=== PATIENT | female | born 1990 | race Hispanic/Latino ===

== ENCOUNTER 2019-10-26 17:50 | Inpatient (IN) | payer OTHER ==
[~2019-10-26] VITALS: Ht 162.6 cm; Wt 105.0 kg
[2019-10-26] MEDS ORDERED: ACETAMINOPHEN 325 MG TAB PO ONE (18:30)
[2019-10-26] MEDS ORDERED: AZITHROMYCIN 500MG/NS 250 ML 250 ML IV ONE (18:30)
[2019-10-26] MEDS ORDERED: CEFTRIAXONE SOD 1 GM/NS 50 ML 50 ML IV ONE (18:30)
[2019-10-26] MEDS ORDERED: ACETAMINOPHEN 325 MG TAB ONE (18:38)
--- NOTE | 2019-10-26 18:51 | Emergency Department Note ---
History of Present Illnes History of Present Illness Chief Complaint: COVID PUI History of Present Illness This is a 29 year old female who states she tested positive for cocaine 1 week ago at a freestanding ER presents with complaint of increasing shortness of breath that is getting worse with exertion point now that she becomes very short of breath when she tries to walk to her bathroom. Patient reports dry cough that is nonproductive. Patient also reports has a history of asthma and has been using her inhalers without any effect to her breathing however she does deny wheezing . Historian: Patient Arrival Mode: Car Onset (how long ago): day(s) (7) Location: chest Quality: sob Radiation: Reports non-radiation Severity: moderate Onset quality: gradual Duration (how long): day(s) (7) Timing of current episode: constant Progression: worsening Chronicity: new Context: Reports recent illness (positive for covid 19 one week ago); Denies recent surgery, Denies trauma/injury Relieving factors: none Exacerbating factors: movement Associated symptoms: Reports cough, Reports fever/chills, Reports shortness of breath, Reports weakness Treatments prior to arrival: none Past Medical/Family History Physician Review I have reviewed the patient's past medical and family history. Any updates have been documented here. Past Medical History Recent Fever: Yes (REPORTS 102) Clinical Suspicion of Infectio: Yes New/Unexplained Change in Ment: No Past Medical History: Asthma Past Surgical History: None Social History Smoking Cessation: Never Smoker Alcohol Use: None Any Illegal Drug Use: No Family History Other family history htn,dm Review of Systems Review of Systems Constitutional: Reports as per HPI EENTM: Reports no symptoms Cardiovascular: Reports no symptoms Respiratory: Reports as per HPI Gastrointestinal: Reports no symptoms Genitourinary: Reports no symptoms Musculoskeletal: Reports no symptoms Integumentary: Reports no symptoms Neurological: Reports no symptoms Psychological: Reports no symptoms Endocrine: Reports no symptoms Hematological/Lymphatic: Reports no symptoms Physical Exam Related Data Allergies: Coded Allergies: No Known Allergies (Unverified , 10/26/19) Triage Vital Signs Vital Signs Date Time Temp Pulse Resp B/P (MAP) Pulse Ox O2 Delivery O2 Flow Rate FiO2 10/26/19 18:11 97.2 135 26 132/90 98 Room Air Vital signs reviewed: Yes Physical Exam CONSTITUTIONAL Constitutional: Present well-developed, Present well-nourished, Present distressed (mild), Present ill appearing HENT HENT: Present normocephalic, Present atraumatic, Present oropharynx clear/moist, Present nose normal HENT L/R: Present left ext ear normal, Present right ext ear normal EYES Eyes: Reports PERRL, Reports conjunctivae normal NECK Neck: Present ROM normal PULMONARY Pulmonary: Present effort normal, Present respiratory distress (pt with tacypnea rr 32), Present rhonchi (throughout); Absent chest tenderness CARDIOVASCULAR Cardiovascular: Present regular rhythm, Present heart sounds normal, Present capillary refill normal, Present tachycardia (134) GASTROINTESTINAL Abdominal: Present soft, Present nontender, Present bowel sounds normal GENITOURINARY Genitourinary: Present exam deferred SKIN Skin: Present warm, Present dry MUSCULOSKELETAL Musculoskeletal: Present ROM normal NEUROLOGICAL Neurological: Present alert, Present oriented x 3, Present no gross motor or sensory deficits PSYCHOLOGICAL Psychological: Present mood/affect normal, Present judgement normal Results Laboratory Laboratory Laboratory Tests Test 10/26/19 19:00 White Blood Count 9.92 x10e3/uL (4.8-10.8) Red Blood Count 5.01 x10e6/uL (3.6-5.1) Hemoglobin 14.2 g/dL (12.0-16.0) Hematocrit 44.4 % (34.2-44.1) Mean Corpuscular Volume 88.6 fL (81-99) Mean Corpuscular Hemoglobin 28.3 pg (28-32) Mean Corpuscular Hemoglobin Concent 32.0 g/dL (31-35) Red Cell Distribution Width 13.2 % (11.7-14.4) Platelet Count 358 x10e3/uL (140-360) Neutrophils (%) (Auto) 82.4 % (38.7-80.0) Lymphocytes (%) (Auto) 12.5 % (18.0-39.1) Monocytes (%) (Auto) 4.2 % (4.4-11.3) Eosinophils (%) (Auto) 0.0 % (0.0-6.0) Basophils (%) (Auto) 0.2 % (0.0-1.0) Neutrophils # (Auto) 8.2 (2.1-6.9) Lymphocytes # (Auto) 1.2 (1.0-3.2) Monocytes # (Auto) 0.4 (0.2-0.8) Eosinophils # (Auto) 0.0 (0.0-0.4) Basophils # (Auto) 0.0 (0.0-0.1) Absolute Immature Granulocyte (auto 0.07 x10e3/uL (0-0.1) D-Dimer Quantitative (PE/DVT) 230 ng/mL (0-400) Sodium Level 137 mmol/L (136-145) Potassium Level 4.1 mmol/L (3.5-5.1) Chloride Level 101 mmol/L (98-107) Carbon Dioxide Level 19 mmol/L (22-29) Anion Gap 21.1 mmol/L (8-16) Blood Urea Nitrogen 10 mg/dL (7-26) Creatinine 0.89 mg/dL (0.57-1.11) Estimat Glomerular Filtration Rate > 60 ML/MIN (60-) BUN/Creatinine Ratio 11 (6-25) Glucose Level 108 mg/dL (74-118) Lactic Acid Level 1.3 mmol/L (0.5-2.0) Calcium Level 9.1 mg/dL (8.4-10.2) Total Bilirubin 0.4 mg/dL (0.2-1.2) Aspartate Amino Transf (AST/SGOT) 26 IU/L (5-34) Alanine Aminotransferase (ALT/SGPT) 36 IU/L (0-55) Alkaline Phosphatase 52 IU/L (40-150) Creatine Kinase MB 0.20 ng/mL (0-5.0) Troponin I < 0.001 ng/mL (0-0.300) Total Protein 8.8 g/dL (6.5-8.1) Albumin 4.1 g/dL (3.5-5.0) Globulin 4.7 g/dL (2.3-3.5) Albumin/Globulin Ratio 0.9 (0.8-2.0) Lab results reviewed: Yes Imaging Imaging results reviewed: Yes Impressions EXAMINATION: CHEST SINGLE (PORTABLE) INDICATION: Shortness of breath and Covid positive. COMPARISON: None FINDINGS: TUBES and LINES: None. LUNGS: Low lung volumes with bronchovascular crowding. There is a lower lobe predominance multifocal interstitial and patchy airspace opacities. PLEURA: No pleural effusion or pneumothorax. HEART AND MEDIASTINUM: The cardiomediastinal silhouette is within normal limits. BONES AND SOFT TISSUES: No acute osseous lesion. Soft tissues are unremarkable. UPPER ABDOMEN: No free air under the diaphragm. IMPRESSION: Low lung volumes with multifocal interstitial and patchy airspace opacities most compatible with multifocal pneumonia. Signed by: Janes Guerra MD on 10/26/2019 7:23 PM Dictated By: JANES GUERRA MD 22 Transcribed By: GINA on 10/26/191922 COPY TO: GARCIA KEEN MD~ Procedures 12 Lead ECG Interpretation ECG Interpretation : ECG: ECG 1 [employer]: Interpreted by ED physician Date: Oct 26, 2019 Time: 18:32 Rhythm: sinus tachycardia Rate: tachycardia BPM: 134 QRS axis: right ST segments normal: Yes T wave inversion: III, V1 Q waves: III, V1 Clinical Impression: abnormal ECG Additional Comments ekg exhibits a s1q3t3 abnormality Assessment & Plan Medical Decision Making MDM Patient presents with complaint of worsening shortness of breath was diagnosed with Covid 19 one week ago. Patient found to have a temp of 103 on arrival patient is tachycardic patient has an s1q3t3 abnormality on EKG. CBC, CMP, lactic acid, blood cultures, chest x-ray, d-dimer, cardiac enzymes, ordered to eval for viral pneumonia, pulmonary embolus, myocardial infarction, electrolyte abnormality, leukocytosis, sepsis Tylenol 975 mg by mouth ordered, Rocephin 1 g IV ordered, Zithromax 500 mg IV ordered Patient's oxygen saturations on room air bounce from 88-95%. Patient placed on [address] of nasal cannula oxygen saturations 98%. i spoke with dr anaya and he requests dr linn lira be consulted for pulmonology, i spoke with dr lira, i left a message for dr powell Assessment & Plan Final Impression: (1) COVID-19 (2) Viral pneumonia (3) Dyspnea (4) Respiratory distress Depart Disposition: ADMITTED Last Vital Signs Date Time Temp Pulse Resp B/P (MAP) Pulse Ox O2 Delivery O2 Flow Rate FiO2 10/26/19 18:34 103.2 10/26/19 18:11 135 26 98 Room Air Medications in the ED Ceftriaxone Sodium 50 ml @ 100 mls/hr ONCE ONCE IV ; Start 10/26/19 at 18:30; Stop 10/26/19 at 18:59 Azithromycin 250 ml @ 250 mls/hr NOW ONCE IV ; Start 10/26/19 at 18:30; Stop 10/26/19 at 19:29 Acetaminophen 975 mg ONCE ONCE PO ; Start 10/26/19 at 18:30; Stop 10/26/19 at 18:31; Status DC Acetaminophen 975 mg STK-MED ONCE .ROUTE ; Start 10/26/19 at 18:38; Stop 10/26/19 at 18:32; Status DC GARCIA KEEN MD Oct 26, 2019 18:51
[2019-10-26 19:26] LABS: BASOPHILS % 0.2 % (0.0-1.0); HEMATOCRIT 44.4 % (34.2-44.1); HEMOGLOBIN 14.2 g/dL (12.0-16.0); LYMPHOCYTES # (AUTO) 1.2 (1.0-3.2); LYMPHOCYTES % 12.5 % (18.0-39.1); MEAN CORPUSCULAR HEMOGLOBIN 28.3 pg (28-32); MEAN CORPUSCULAR VOLUME 88.6 fL (81-99); MONOCYTES # (AUTO) 0.4 (0.2-0.8); MONOCYTES % 4.2 % (4.4-11.3); NEUTROPHILS # (AUTO) 8.2 (2.1-6.9); NEUTROPHILS % 82.4 % (38.7-80.0); PLATELET COUNT 358 x10e3/uL (140-360); RED BLOOD COUNT 5.01 x10e6/uL (3.6-5.1); RED CELL DISTRIBUTION WIDTH 13.2 % (11.7-14.4)
[2019-10-26] MEDS ORDERED: ONDANSETRON HCL INJ 2MG/ML 2ML 2 MG/ML VIAL ONE (19:26)
--- NOTE | 2019-10-26 19:26 | Diagnostic Imaging Report ---
EXAMINATION: CHEST SINGLE (PORTABLE) INDICATION: Shortness of breath and Covid positive. COMPARISON: None FINDINGS: TUBES and LINES: None. LUNGS: Low lung volumes with bronchovascular crowding. There is a lower lobe predominance multifocal interstitial and patchy airspace opacities. PLEURA: No pleural effusion or pneumothorax. HEART AND MEDIASTINUM: The cardiomediastinal silhouette is within normal limits. BONES AND SOFT TISSUES: No acute osseous lesion. Soft tissues are unremarkable. UPPER ABDOMEN: No free air under the diaphragm. IMPRESSION: Low lung volumes with multifocal interstitial and patchy airspace opacities most compatible with multifocal pneumonia. Signed by: Surekha Sal MD on 10/26/2019 7:23 PM
[2019-10-26 19:47] LABS: ALANINE AMINOTRANSFERASE 36 IU/L (0-55); ALBUMIN 4.1 g/dL (3.5-5.0); ALBUMIN/GLOBULIN RATIO 0.9 (0.8-2.0); ALKALINE PHOSPHATASE 52 IU/L (40-150); ANION GAP 21.1 mmol/L (8-16); BLOOD UREA NITROGEN 10 mg/dL (7-26); BUN/CREATININE RATIO 11 (6-25); CALCIUM 9.1 mg/dL (8.4-10.2); CARBON DIOXIDE 19 mmol/L (22-29); CHLORIDE 101 mmol/L (98-107); CREATININE, SERUM 0.89 mg/dL (0.57-1.11); EST GLOMERULAR FILTRATION RATE > 60 ML/MIN (60-); GLUCOSE 108 mg/dL (74-118); POTASSIUM 4.1 mmol/L (3.5-5.1); SODIUM 137 mmol/L (136-145)
[2019-10-26] MEDS ORDERED: ACETAMINOPHEN 325 MG TAB PO PRN (20:15)
[2019-10-26] MEDS ORDERED: SODIUM CHLORIDE 0.9% 1000ML 1,000 ML IV ONE (20:15)
[2019-10-26] MEDS ORDERED: AZITHROMYCIN 500MG/SOD CHL 0.9% 250ML BAG IV SCH (20:15)
[2019-10-26 20:17] LABS: CREATINE KINASE 105 IU/L (29-168)
[2019-10-26] MEDS ORDERED: DEXAMETHASONE SOD PHOS INJ 4 MG/ML VIAL IV SCH (20:30)
--- OUTSIDE RECORDS SUMMARY | 2019-10-26 20:49 | XMS REPORT | Continuity of Care Document ---
Author Author [facility] t Organization [facility] Address [address] [place] [address] Phone Unavailable Care Team Providers Care Lining Cleaner Name Role Phone Omar KEEN Attphyelvis Pina MD, Jeniffer Attphys Payers Payer Name Policy Type Policy Number Effective Date Expiration Date S ource Problems This patient has no known problems. Allergies, Adverse Reactions, Alerts Allergy Name Allergy Type Status Severity Reaction(s) Onset Date Inacti ve Date Treating Clinician Comments Source codeine DA Active U 2010-06-22 00:00:00 [facility] Medications This patient has no known medications. Procedures This patient has no known procedures. Encounters Start Date/Time End Date/Time Encounter Type Admission Type Attendi [facility] Care Department Encounter ID Source 2019-10-15 16:17:16 2019-10-15 17:23:04 Office Visit Jeniffer Teague [facility] [place] [id number] Results Test Description Test Time Test Comments Results Result Comments Source CHEST SINGLE (PORTABLE) 2019-10-26 19:21:00 [facility] [address], [place] [address] Patient Name: STAN FLORES MR #: [id number] : 1990 Age/Sex: 29/F Req #: [id number] [facility] Physician: Ordered by: GARCIA KEEN MD Report #: [id number] Location: ER Room/Bed: Procedure: [id number] DX/CHEST SINGLE (PORTABLE) Exam Date: Exam Time: REPORT STATUS: Signed EXAMINATION: CHEST SINGLE (PORTABLE) INDICATION: Shortness of breath and Covid positive. COMPARISON: None FINDINGS: TUBES and LINES: None. LUNGS: Low lung volumes with bronchovascular crowding. There is a lower lobe predominance multifocal interstitial and patchy airspace opacities. PLEURA: No pleural effusion or pneumothorax. HEART AND MEDIASTINUM: The cardiomediastinal silhouette is within normal limits. BONES AND SOFT TISSUES: No acute osseous lesion. Soft tissues are unremarkable. UPPER ABDOMEN: No free air under the diaphragm. IMPRESSION: Low lung volumes with multifocal in terstitial and patchy airspace opacities most compatible with multifocal pneumonia. Signed by: Janes Guerra MD on 10/26/2019 7:23 PM Dictated By: JANES GUERRA MD 22 Transcribed By: GINA on 10/26/191922 COPY TO: GARCIA KEEN MD - TRANSVAGINAL NON OB 2018-09-04 01:18:00 N danelle: STAN FLORES [facility] : 1990 Age/S: 28 / F [address] [place] [address] Unit #: [id number] Loc: [place] [address] Phys: Ferdinand Toney MD Acct: [id number] Dis Date: Status: REG ER PHONE #: [phone] Exam Date: 09/03/2018 0016 FAX #: [phone] Reason: rule out ovarian torsion on the right side EXAMS: CPT CODE: [id number] [place] [id number] EXAM: US, US PELVIS COMPLETE: 09/03/2018, 2348 hours EXAM:US, US PREG UT TRANSVAGINAL: 09/03/2018, 2348 hours HISTORY: Sharp abdominal pain. Evaluate ovarian torsion on the right side. TECHNIQUE: sonographic evaluation is performed of the pelvis via transabdominal and transvaginal approach using grayscale, color flow and Doppler imaging as appropriate. COMPARISON: CT dated 09/03/2018, 2139 hours Findings: Transabdominal pelvic ultrasound shows uterus to be anteverted. Uterus measures 6.7 x 3.5 x 4.2 cm. A large cyst is identified in the right adnexa. For better visualization of endometrium and adnexa, endovaginal pelvic ultrasound is performed. Endovaginal pelvic ultrasound shows uterus to be anteverted. Endometrial stripe is 12 mm in thickness. Uterus is unremarkable for echotexture. Right ovary: 13.1 x 9.3 x 11.0 cm Left ovary: 3.3 x 2.4 x 2.3 cm. A large cyst is noted in the right ovary measuring 9.1 x 10.8 x 8.7 cm. There is normal flow to the both ovaries with no evidence for ovarian torsion. No free fluid seen in the pelvis IMPRESSION: 1. No evidence for ovarian torsion. 2. Large right ovarian cyst. SL:JSYED-H at 0118 Reported and signed by: Jim Lees M.D. PAGE 1 Signed Report (CONTINUED) Name: STAN FLORES [facility] : 1990 Age/S: 28 / F [address] [place] [address] Unit #: [id number] Loc: [place] [address] Phys: Ferdinand Toney MD Acct: [id number] Dis Date: Status: REG ER PHONE #: [phone] Exam Date: 09/03/201815 FAX #: [phone] Reason: rule out ovarian torsion on the right side EXAMS: CPT CODE: [id number] [place] [address] <Continued> CC: Ferdinand Toney MD Technologist: Danay Remy RDMS(Flavio)(OB) Trnscb Date/Time: 09/04/2018 (0118) [email or web address] Orig Print D/T: S: 09/04/2018 (0121) Probe: [id number] PAGE 2 Signed Report - US PELVIS COMPLETE 2018-09-04 01:18:00 Name: STAN FLORES [facility] : 1990 Age/S: 28 / F [address] [place] [address] Blvd Unit #: [id number] Loc: [place] [address] Phys: Ferdinand Toney MD Acct: [id number] Dis Date: Status: REG ER PHONE #: [phone] Exam Date: 09/03/2018 0016 FAX #: [phone] Reason: rule out ovarian torsion on the right side EXAMS: CPT CODE: [id number] US PELVIS COMPLETE 25045 EXAM: US, US PELVIS COMPLETE: 09/03/2018, 2348 hours EXAM:US, US PREG UT TRANSVAGINAL: 09/03/2018, 2348 hours HISTORY: Sharp abdominal pain. Evaluate ovarian torsion on the right side. TECHNIQUE: sonographic evaluation is performed of the pelvis via transabdominal and transvaginal approach using grayscale, color flow and Doppler imaging as appropriate. COMPARISON: CT dated 09/03/2018, 2139 hours Findings: Transabdominal pelvic ultrasound shows uterus to be anteverted. Uterus measures 6.7 x 3.5 x 4.2 cm. A large cyst is identified in the right adnexa. For better visualization of endometrium and adnexa, endovaginal pelvic ultrasound is performed. Endovaginal pelvic ultrasound shows uterus to be anteverted. Endometrial stripe is 12 mm in thickness. Uterus is unremarkable for echotexture. Right ovary: 13.1 x 9.3 x 11.0 cm Left ovary: 3.3 x 2.4 x 2.3 cm. A large cyst is noted in the right ovary measuring 9.1 x 10.8 x 8.7 cm. There is normal flow to the both ovaries with no evidence for ovarian torsion. No free fluid seen in the pelvis IMPRESSION: 1. No evidence for ovarian torsion. 2. Large right ovarian cyst. SL:JSYED-H at 0118 Reported and signed by: Jim Lees M.D. PAGE 1 Signed Report (CONTINUED) Name: STAN FLORES : 1990 Age/S: 28 / F [address] [place] [address] Unit #: [id number] Loc: [place] [address] Phys: Ferdinand Toney MD Acct: [id number] Dis Date: Status: REG ER PHONE #: [phone] Exam Date: 09/03/201815 FAX #: [phone] Reason: rule out ovarian torsion on the right side EXAMS: CPT CODE: [id number] US PELVIS COMPLETE 32341 <Continued> CC: Ferdinand Toney MD Technologist: Danay Remy RDMS(A)(OB) [facility] [place] [place] Date/Time: 09/04/2018 (011) [email or web address] Orig Print D/T: S: 09/04/2018 (0121) Probe: PAGE 2 Signed Report - CT ABD PELVIS W/CONT 2018-09-03 22:02:00 Nam e: STAN FLORES : 1990 Age/S: 28 / F [address] [place] [address] Unit #: [id number] Loc: [place] [address] Phys: Ramses Barillas MD Acct: [id number] Dis Date: Status: REG ER PHONE #: [phone] Exam Date: 09/03/2018 213 FAX #: [phone] Reason: Severe RLQ pain EXAMS: CPT CODE: [id number] CT ABD PELVIS W/CONT 15829 PROCEDURE: CT ABDOMEN AND PELVIS WITH CONTRAST INDICATION: Right lower quadrant abdominal pain COMPARISON: None. TECHNIQUE: Helical imaging was performed diaphragm through the symphysis with multiplanar reconstructions. IV CONTRAST: 100 mL Isovue-300. GI CONTRAST: 10 mL Gastrografin diluted in water. CT imaging performed at this location utilizes radiation dose optimization techniques which include one or more of the following: -Automated exposure control -Adjustment of the mA and/or kV according to patient size - Use of iterative reconstruction technique CT Radiation Dose DLP 974 mGy-cm FINDINGS: LOWER CHEST: The lung bases are clear. LIVER: Severe hepatic steatosis. No intra or extrahepatic biliary ductal dilatation. GALLBLADDER: Normal. SPLEEN: Normal. PANCREAS: Normal. ADRENALS: Normal. KIDNEYS: Normal. BOWEL: The stomach, small bowel and colon are unremarkable. APPENDIX: Normal. PERITONEUM: No free intraperitoneal fluid or air. RETROPERITONEUM: No adenopathy. The aorta is normal. PELVIS: There is a 10 cm mid pelvic cysts, wh ich appears to originate from the right. The urinary bladder is normal. MUSCULOSKELETAL: No acute abnormality. PAGE 1 Signed Report (CONTINUED) Name: STAN FLORES [facility] [place] : 1990 Age/S: 28 / F [address] [place] [address] Unit #: [id number] Loc: [place] [address] Phys: Ramses Barillas MD Acct: [id number] Dis Date: Status: REG ER PHONE #: [phone] Exam Date: 09/03/20182138 FAX #: [phone] Reason: Severe RLQ pain EXAMS: CPT CODE: [id number] CT ABD PELVIS W/CONT 95116 <Continued> IMPRESSION: 1. 10 cm right ovarian cyst. This shows no internal hematocrit level/hemorrhage, septation, or calcification by CT. 2. Severe hepatic steatosis. 3. Otherwise, unremarkable exam. SL:01 at 2202 Reported and signed by: Damian Begum M.D. CC: Ramses Barillas MD Technologist:Tanika Cho RT(R)(CT) CTDI: DLP: Trnscb Date/Time: 09/03/2018 (2201) Honorio Orig Print D/T: S: 09/03/2018 (2204) PAGE 2 Signed Report COMPREHENSIVE METABOLIC PANEL 2018-09-03 21:19:00 Test Item SODIUM (test code = NA) 139 mEq/L 134-147 N POTASSIUM (test code = K) 4.7 mEq/L 3.4-5.0 N CHLORIDE (test code = CL) 107 mEq/L 100-108 N CARBON DIOXIDE (test code = CO2) 22 mEq/L 21-33 N ANION GAP (test code = GAP) 15 0-20 N GLUCOSE (test code = GLU) 122 mg/dL 70-110 H BLOOD UREA NITROGEN (test code = BUN) 12 mg/dL 7-18 N GLOMERULAR FILTRATION RATE (test code = GFR) 86.7 110-120 L Units of measure = ml/min/1.73 m2 CREATININE (test code = CREAT) 0.8 mg/dL 0.6-1.3 N TOTAL PROTEIN (test code = PROT) 8.9 g/dL 6.4-8.2 H ALBUMIN (test code = ALB) 4.60 g/dL 3.4-5.0 N CALCIUM (test code = CA) 9.6 mg/dL 8.0-10.5 N BILIRUBIN TOTAL (test code = BILT) 0.20 mg/dL 0.0-1.0 N SGOT/AST (test code = AST) 24 IUnit/L 15-37 N SGPT/ALT (test code = ALT) 68 IUnit/L 15-65 H ALKALINE PHOSPHATASE TOTAL (test code = ALKP) 79 IUnit/L 20-125 N [id number] 21:19:00* Test Item Value Reference Range Interpretation Comments LIPASE (test code = LIP) 88 IUnit/L 73-393 N HCG SERUM [id number] 21:19:00* Test Item Value Reference Range Interpretation Comments HCG SERUM QUAL (test code = HCGQL) SERUM NEGATIVE NEGATIVE COMPREHENSIVE METABOLIC [id number] 21:11:00* Test Item Value Reference Range Interpretation Comments SODIUM (test code = NA) mEq/L 134-147 POTASSIUM (test code = K) mEq/L 3.4-5.0 CHLORIDE (test code = CL) mEq/L 100-108 CARBON DIOXIDE (test code = CO2) mEq/L 21-33 ANION GAP (test code = GAP) 0-20 GLUCOSE (test code = GLU) mg/dL 70-110 BLOOD UREA NITROGEN (test code = BUN) mg/dL 7-18 GLOMERULAR FILTRATION RATE (test code = GFR) 110-120 CREATININE (test code = CREAT) mg/dL 0.6-1.3 TOTAL PROTEIN (test code = PROT) g/dL 6.4-8.2 ALBUMIN (test code = ALB) g/dL 3.4-5.0 CALCIUM (test code = CA) mg/dL 8.0-10.5 BILIRUBIN TOTAL (test code = BILT) mg/dL 0.0-1.0 SGOT/AST (test code = AST) IUnit/L 15-37 SGPT/ALT (test code = ALT) IUnit/L 15-65 ALKALINE PHOSPHATASE TOTAL (test code = ALKP) IUnit/L 20-125 [id number] 21:11:00* Test Item Value Reference Range Interpretation Comments LIPASE (test code = LIP) IUnit/L 73-393 HCG SERUM [id number] 21:11:00* Test Item Value Reference Range Interpretation Comments HCG SERUM QUAL (test code = HCGQL) SERUM NEGATIVE NEGATIVE CBC W/AUTO [id number] 20:57:00* Test Item Value Reference Range Interpretation Comments WHITE BLOOD CELL (test code = WBC) 17.12 x10 3/uL 4.5-11.0 H RED BLOOD CELL (test code = RBC) 5.09 x10 6/uL 3.54-5.02 H HEMOGLOBIN (test code = HGB) 14.6 g/dL 11.0-15.0 N HEMATOCRIT (test code = HCT) 44.6 % 33.0-45.0 N MEAN CELL VOLUME (test code = MCV) 87.6 fL 81.0-99.0 N MEAN CELL HGB (test code = MCH) 28.7 pg 27.0-33.0 N MEAN CELL HGB CONCETRATION (test code = MCHC) 32.7 g/dL 33.0-37. 0 L RED CELL DISTRIBUTION WIDTH CV (test code = RDW) 12.8 % 11.5- 14.5 N RED CELL DISTRIBUTION WIDTH SD (test code = RDW-SD) 41.4 fL 37 .0-54.0 N PLATELET COUNT (test code = PLT) 445 x10 3/uL 150-400 H MEAN PLATELET VOLUME (test code = MPV) 9.2 fL 7.0-9.0 H NEUTROPHIL % (test code = NT%) 79.0 % 56.0-77.0 H IMMATURE GRANULOCYTE % (test code = IG%) 0.7 % 0.0-2.0 N LYMPHOCYTE % (test code = LY%) 14.9 % 14.0-32.0 N MONOCYTE % (test code = MO%) 4.7 % 4.8-9.0 L EOSINOPHIL % (test code = EO%) 0.2 % 0.3-3.7 L BASOPHIL % (test code = BA%) 0.5 % 0.0-2.0 N NUCLEATED RBC % (test code = NRBC%) 0.0 % 0-0 N NEUTROPHIL # (test code = NT#) 13.52 x10 3/uL 2.0-7.6 H IMMATURE GRANULOCYTE # (test code = IG#) 0.12 x10 3/uL 0.00-0.03 H LYMPHOCYTE # (test code = LY#) 2.55 x10 3/uL 1.0-3.8 N MONOCYTE # (test code = MO#) 0.81 x10 3/uL 0.1-0.8 H EOSINOPHIL # (test code = EO#) 0.04 x10 3/uL 0.0-0.2 N BASOPHIL # (test code = BA#) 0.08 x10 3/uL 0.0-0.2 N NUCLEATED RBC # (test code = NRBC#) 0.00 x10 3/uL 0.0-0.1 N MANUAL DIFF REQUIRED (test code = MDIFF) NO URINALYSIS [id number] 20:03:00* Test Item Value Reference Range Interpretation Comments UA COLOR (test code = COLU) YELLOW YEL/STRAW UA APPEARANCE (test code = APPU) CLEAR CLEAR UA GLUCOSE DIPSTICK (test code = DGLUU) NEGATIVE NEGATIVE UA BILIRUBIN DIPSTICK (test code = BILU) NEGATIVE NEGATIVE UA KETONE DIPSTICK (test code = KETU) NEGATIVE NEGATIVE UA SPECIFIC GRAVITY (test code = SGU) 1.024 1.005-1.030 N UA BLOOD DIPSTICK (test code = JACINTA) 1+ NEGATIVE A UA PH DIPSTICK (test code = JEIMY) 6.0 5.0-7.0 N UA PROTEIN DIPSTICK (test code = PROU) 2+ NEGATIVE A UA UROBILINIOGEN DIPSTICK (test code = URO) 0.2 mg/dL 0.2-1.0 UA NITRITE DIPSTICK (test code = RON) NEGATIVE NEGATIVE UA LEUKOCYTE ESTERASE DIPSTICK (test code = LEUU) NEGATIVE NEGA TIVE UA WBC (test code = WBCU) 4-9 WBC/HPF 0-3 A UA RBC (test code = RBCU) 4-10 RBC/HPF 0-3 UA BACTERIA (test code = BACU) TRACE /HPF NONE SEEN UA SQUAMOUS CELLS (test code = SQU) 0-5 /HPF NONE SEEN UA MUCUS (test code = MUCU) 2+ /LPF NONE SEEN A COMMENTS: Clean Catch
--- OUTSIDE RECORDS SUMMARY | 2019-10-26 20:58 | XMS REPORT | Continuity of Care Document ---
Author Author [facility] t Organization [facility] Address [address] [place] [address] Phone Unavailable Care Team Providers Care Desulfurizer Hand Name Role Phone Omar KEEN Attphys Unavailable Jeniffer Pina MD Attphys Payers Payer Name Policy Type Policy Number Effective Date Expiration Date S ource Problems This patient has no known problems. Allergies, Adverse Reactions, Alerts Allergy Name Allergy Type Status Severity Reaction(s) Onset Date Inacti ve Date Treating Clinician Comments Source codeine DA Active U 2010-06-22 00:00:00 [facility] Medications This patient has no known medications. Procedures This patient has no known procedures. Encounters Start Date/Time End Date/Time Encounter Type Admission Type [facility] Care Department Encounter ID Source 2019-10-15 16:17:16 2019-10-15 17:23:04 Office Visit Jeniffer Teague [facility] [place] [id number] Results Test Description Test Time Test Comments Results Result Comments Source CHEST SINGLE (PORTABLE) 2019-10-26 19:21:00 [facility] [address] [place], [place] [address] Patient Name: STAN FLORES MR #: [id number] : 1990 Age/Sex: 29/F Req #: [id number] Adm Physician: Ordered by: GARCIA KEEN MD Report #: [id number] Location: ER Room/Bed: Procedure: [id number] DX/CHEST SINGLE (PORTABLE) Exam Date: Exam Time: [...] OB 2018-09-04 01:18:00 N danelle: STAN FLORES [facility] : 1990 Age/S: 28 / F [address] [place] [address] Unit #: [id number] Loc: [place] [address] Phys: Ferdinand Toney MD Acct: [id number] Dis Date: Status: REG ER PHONE #: [phone] Exam Date: 09/03/2018 0016 FAX #: [phone] Reason: rule out ovarian torsion on the right side EXAMS: CPT CODE: [id number] [place] [address] EXAM: US, US PELVIS COMPLETE: 09/03/2018, 2348 [...] ovarian torsion. 2. Large right ovarian cyst. SL:LORENZO at 0118 Reported and signed by: Jim Lees M.D. PAGE 1 Signed Report (CONTINUED) Name: STAN FLORES [facility] : 1990 Age/S: 28 / F [address] [place] [address] Unit #: [id number] Loc: [place] [address] Phys: Ferdinand Toney MD Acct: [id number] Dis Date: Status: REG ER PHONE #: [phone] Exam Date: 09/03/2018 0016 FAX #: [phone] Reason: rule out ovarian torsion on the right side EXAMS: CPT CODE: [id number] [place] [address] <Continued> CC: Ferdinand Toney MD Technologist: Danay Remy RDMS(A)(OB) Trnscb Date/Time: 09/04/2018 (0118) [email or web address] Orig Print D/T: S: 09/04/2018 (0121) Probe: [id number] PAGE 2 Signed Report - US PELVIS COMPLETE 2018-09-04 01:18:00 Name: STAN FLORES [facility] : 1990 Age/S: 28 / F [address] [place] [address] Unit #: [id number] Loc: [place] [address] Phys: Ferdinand Toney MD Acct: [id number] Dis Date: Status: REG ER PHONE #: [phone] Exam Date: 09/03/2018 0016 FAX #: [phone] Reason: rule out ovarian torsion on the right side EXAMS: CPT CODE: [id number] US PELVIS COMPLETE 50079 EXAM: US, US PELVIS COMPLETE: 09/03/2018, 2348 [...] FLORES : 1990 Age/S: 28 / F [address] [place] [address] Unit #: [id number] Loc: [place] [address] Phys: Ferdinand Toney MD Acct: [id number] Dis Date: Status: REG ER PHONE #: [phone] Exam Date: 09/03/2018 0016 FAX #: [phone] Reason: rule out ovarian torsion on the right side EXAMS: CPT CODE: [id number] PELVIS COMPLETE 22538 <Continued> CC: Ferdinand Toney MD Technologist: Danay Remy RDMS(A)(OB) Trnscb Date/Time: 09/04/2018 (011) [email or web address] Orig Print D/T: S: 09/04/2018 (012) Probe: PAGE 2 Signed Report - CT ABD PELVIS W/CONT 2018-09-03 22:02:00 [facility] 1990 Age/S: 28 / F [address] [place] [address] Unit #: [id number] Loc: [place] [address] Phys: Ramses Barillas MD Acct: [id number] Dis Date: Status: REG ER PHONE #: [phone] Exam Date: 09/03/2018 2139 FAX #: [phone] Reason: Severe RLQ pain EXAMS: CPT CODE: [id number] CT ABD PELVIS W/CONT 21078 PROCEDURE: CT ABDOMEN AND PELVIS WITH CONTRAST [...] 1 Signed Report (CONTINUED) Name: STAN FLORES [facility] : 1990 Age/S: 28 / F [address] [place] [address] Blvd Unit #: [id number] Loc: [place] [address] Phys: Ramses Barillas MD Acct: [id number] Dis Date: Status: REG ER PHONE #: [phone] Exam Date: 09/03/20182138 FAX #: [phone] Reason: Severe RLQ pain EXAMS: CPT CODE: [id number] CT ABD PELVIS W/CONT 58670 <Continued> IMPRESSION: 1. 10 cm right ovarian cyst. This shows no internal hematocrit level/hemorrhage, septation, or calcification by CT. 2. Severe hepatic steatosis. 3. Otherwise, unremarkable exam. SL:01 at 2202 Reported and signed by: Damian Begum M.D. CC: Ramses Barillas MD Technologist:Tanika Cho RT(R)(CT) CTDI: DLP: Trnscb Date/Time: 09/03/2018 (2201) tANTONINA Orig Print D/T: S: 09/03/2018 (2204) PAGE [...] code = ALKP) 79 IUnit/L 20-125 N [id number] 21:19:00* Test Item Value Reference Range Interpretation Comments LIPASE (test code = LIP) 88 IUnit/L 73-393 N HCG SERUM [id number] 21:19:00* Test Item Value Reference Range Interpretation Comments HCG SERUM QUAL (test code = HCGQL) SERUM NEGATIVE NEGATIVE COMPREHENSIVE METABOLIC [id number] 21:11:00* Test Item Value Reference Range Interpretation [...] TOTAL (test code = ALKP) IUnit/L 20-125 [id number] 21:11:00* Test Item Value Reference Range Interpretation Comments LIPASE (test code = LIP) IUnit/L 73-393 HCG SERUM [id number] 21:11:00* Test Item Value Reference Range Interpretation Comments HCG SERUM QUAL (test code = HCGQL) SERUM NEGATIVE NEGATIVE CBC W/AUTO [id number] 20:57:00* Test Item Value Reference Range Interpretation [...] REQUIRED (test code = MDIFF) NO URINALYSIS [id number] 20:03:00* Test Item Value Reference Range Interpretation [...]
[2019-10-26 21:30] VITALS: BP 114/88
--- NOTE | 2019-10-26 21:30 | NUR ---
PT TO ROOM 284 VIA STRETCHER. PT ALERT, AWAKE, AND ORIENTED X 3. DENIES ANY PAIN OR DISCOMFORT. VITALS STABLE. 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 BELONGINGS AND CALL LIGHT WITHIN REACH. NO NEEDS AT THIS TIME. DROPLET ISOLATION PRECAUTIONS OBSERVED. WILL CONTINUE TO MONITOR PT.
[2019-10-26] MEDS ORDERED: SYMBICORT 16010.2 GM IH (23:22)
[2019-10-26] MEDS ORDERED: ALBUTEROL0.63 MG/3 IH (23:22)
[2019-10-26] MEDS ORDERED: SINGULAIR10 MG PO (23:22)
[2019-10-26] MEDS ORDERED: XYZAL5 MG (23:22)
[2019-10-27] VITALS (8 sets, daily range): BP systolic 117–122; BP diastolic 73–86
[2019-10-27 04:52] LABS: BASOPHILS % 0.1 % (0.0-1.0); HEMATOCRIT 41.3 % (34.2-44.1); HEMOGLOBIN 12.9 g/dL (12.0-16.0); LYMPHOCYTES # (AUTO) 0.8 (1.0-3.2); LYMPHOCYTES % 11.4 % (18.0-39.1); MEAN CORPUSCULAR HEMOGLOBIN 28.4 pg (28-32); MEAN CORPUSCULAR HGB CONC 31.2 g/dL (31-35); MEAN CORPUSCULAR VOLUME 90.8 fL (81-99); MONOCYTES # (AUTO) 0.1 (0.2-0.8); MONOCYTES % 1.8 % (4.4-11.3); NEUTROPHILS # (AUTO) 6.3 (2.1-6.9); PLATELET COUNT 316 x10e3/uL (140-360); RED BLOOD COUNT 4.55 x10e6/uL (3.6-5.1)
[2019-10-27 05:11] LABS: ALANINE AMINOTRANSFERASE 33 IU/L (0-55); ALBUMIN 3.6 g/dL (3.5-5.0); ALBUMIN/GLOBULIN RATIO 0.8 (0.8-2.0); ALKALINE PHOSPHATASE 49 IU/L (40-150); ANION GAP 19.6 mmol/L (8-16); BLOOD UREA NITROGEN 13 mg/dL (7-26); BUN/CREATININE RATIO 17 (6-25); CALCIUM 8.7 mg/dL (8.4-10.2); CARBON DIOXIDE 20 mmol/L (22-29); CHLORIDE 104 mmol/L (98-107); CREATININE, SERUM 0.77 mg/dL (0.57-1.11); EST GLOMERULAR FILTRATION RATE > 60 ML/MIN (60-); GLUCOSE 130 mg/dL (74-118); POTASSIUM 4.6 mmol/L (3.5-5.1); SODIUM 139 mmol/L (136-145)
[2019-10-27 05:28] LABS: CREATINE KINASE 112 IU/L (29-168)
--- NOTE | 2019-10-27 07:39 | NUR ---
Infectious disease consultation Covid 19 Patient seen and examined chart reviewed This is a 29 year old female who states she tested positive for covid 19 1 week ago at a freestanding ER presents with complaint of increasing shortness of breath that is getting worse with exertion point now that she becomes very short of breath when she tries to walk to her bathroom. Patient reports dry cough that is nonproductive. her covid 19 is positive no Patient 3 L she gets short of breath with minimal exertion she go to the restroom. Part of the patient is telling me that she does have history of obesity and asthma she has been sick for 7 days the shortness of breath she and fever the shortness of breath mainly in the last 2 days that she was diagnosed a few days ago the patient was trying to see if she can get better but actually she is getting worse so she came here. Past medical history asthma obesity past surgical history denies allergies [place] social history there is no smoking or drug abuse or drug abuse family history otherwise unremarkable review of systems HEENT negative, antibody negative ne gative GI negative for all other symptoms with the lower limit her physical examination currently alert oriented vitals stable currently afebrile HEENT she has not protected supple chest crackles bilateral few wheezing noted heart S1-S2 no stressful murmur soft person present extremities no edema skin there is no rash lab data review chart reviewed peripartum depression, 19failure Recommendation Rocephin 1 g daily 5 days azithromycin 5 mg daily for 3 days Decadron 6 mg daily for 10 days oxygen as needed Lovenox 40 mg subcu daily. Discussed with the patient about rmzv the patient understand its is still investigational drug FDA approved urgently because of the outbreak of cope with 19 aware of the fact she discussed with the patient encouraged her to look online and read about it but she would like to have it so we are going to g kaveh it to when available limited to severe 200 mg IV piggyback now they are 100 mg IV piggyback daily for a total of 5 days. We also discussed convalescent plasma the patient is not interested at the present time
[2019-10-27] MEDS ORDERED: ACETAMINOPHEN 325 MG TAB PO PRN (08:00)
[2019-10-27] MEDS ORDERED: ZOLPIDEM TARTRATE 5 MG TAB PO PRN (08:00)
[2019-10-27] MEDS: ENOXAPARIN 30 MG/0.3 ML SYR SC SCH ×2 (08:41→20:51)
[2019-10-27] MEDS: BUDESONIDE/FORMOTEROL 160/4.5MCG INHALER INH SCH ×3 (09:00→19:25)
--- NOTE | 2019-10-27 09:17 | Consultation ---
DATE OF CONSULTATION: Pulmonary Critical Care Consultation CHIEF COMPLAINT: Fever, dyspnea and malaise. HISTORY OF PRESENT ILLNESS: The patient is a 29-year-old woman. Approximately 12 days ago, she started having sinus congestion and upper respiratory symptoms. She contacted a virtual doctor and received methylprednisolone and antibiotics. She did not improve and the doctor recommended COVID-19 testing. She subsequently went for an outpatient COVID-19 test about a week ago and that was positive. Over the past four days, she has noticed some fevers. She has increased dyspnea as well as cough. She has some myalgias. She came to the ER last night and received some intravenous fluids and some Solu-Medrol. She now reports some improvement. PAST SURGICAL HISTORY: Noncontributory. PAST MEDICAL HISTORY: Upper respiratory tract infection and allergic symptoms. ALLERGIES: NO KNOWN DRUG ALLERGIES. SOCIAL HISTORY: The patient is not a smoker. The patient is not a drinker. FAMILY HISTORY: Noncontributory. REVIEW OF SYSTEMS: The patient does have some fevers. There is no headache. She has sinus congestion and rhinorrhea. She has no neck pain. She complains of some dyspnea and cough. She has no chest pain. She has no nausea or vomiting. She has no leg edema. PHYSICAL EXAMINATION: VITAL SIGNS: The patient is afebrile. Her T-max was 103.2. Her blood pressure is 117/77 and her saturation is 97% on 2 L. HEENT: Shows no facial swelling or erythema. LYMPHATIC: Shows no submandibular, cervical, or supraclavicular adenopathy. CARDIAC: Reveals a regular rate and rhythm with a normal S1 and S2. LUNGS: Auscultation of lungs shows rhonchi bilaterally. There is no wheezing. ABDOMEN: Soft and nontender. There is no rebound or guarding. There is no leg edema or calf tenderness. There is no cyanosis or clubbing. SKIN: Shows no rashes. NEUROLOGICAL: Shows no focal abnormalities. LABORATORY DATA: BUN to creatinine ratio is normal. Carbon dioxide is 20. Other electrolytes are within normal limits. The white blood cell count is 7.3 and the hemoglobin is 12.9. The platelet count is 316. IMPRESSION: Viral pneumonia and COVID-19 infection. PLAN: 1. Continue Zithromax and Rocephin. 2. Complete dexamethasone. 3. Continue oxygen as needed. 4. Isolation. 5. Discussed convalescent plasma or remdesivir with Infectious Disease. MD PETE Drake/JORDAN /[id number]
[2019-10-27 09:56] LABS: ALBUMIN 3.8 g/dL (3.5-5.0); BILIRUBIN,DIRECT 0.2 mg/dL (0.0-0.5)
--- NOTE | 2019-10-27 10:04 | NUR ---
Patient up in bed about to take shower, no distress, denies any pain, call light in reach, Dr Omar Francois had rounds
[2019-10-27 10:08] LABS: HIV 1&2 AB SCREEN NON-REACTIVE (NONREACTIVE)
--- NOTE | 2019-10-27 10:34 | NUR ---
H&P cc: sob HPI: 29yoF, PCP none, developed sob in setting of COVID19 positivity about 1 week ago, given steroids and treatment outpt, but came to hospital due to worsening SOB and cough. Pt does complain of increased cough. PMH: COVID19 positive PShx; ovarian cyst ALlergies; see emr FH/SH ;no illicits; no cigs meds; see MAR ROS; no f/c/s/[place]/cp/dizziness/confusion/leg pain/vision changes/mood changes v/s revd PE tired appearing anicteric ns1s2 REDUCED BS; COUGH WITH DEEP INSPIRATION soft nt nd no e/t skin dry flat affect awake; mcgrath labs/meds revd A/P: Acute resp failure- O2 support VIral PNA - supportive COVID19 positive- zinc/vitC/supportive care with O2; IV steroids Multifocal PNA- azithromycin/ceftraixone Sepsis- due to COVID19 infections; antibiotics; fluids as needed. Obesity- screen with hab1c/lipids BMI 39.7- as above Hypoxia- O2 support Prop: lovenox dispo: supportive care; Jose Antonio lE MD, PHD.
[2019-10-27 10:54] LABS: CHOL/HDL RATIO 5.5 (3.0-3.6)
[2019-10-27 12:50] LABS: CREATINE KINASE MB 0.6 ng/mL (0-5.0)
[2019-10-27] MEDS ORDERED: REMDESIVIR 200MG/NS 100ML 200 MG in SODIUM CHLORIDE 0.9% 100 ML 100 ML IV ONE ×2 (17:00→18:00)
[2019-10-27] MEDS ORDERED: REMDESIVIR 100MG/NS 100ML 100 MG in SODIUM CHLORIDE 0.9% 100 ML 100 ML IV SCH (17:00)
[2019-10-27] MEDS: ASCORBIC ACID 500 MG TAB PO SCH (17:27)
[2019-10-27] MEDS ORDERED: CEFTRIAXONE SOD 1 GM/NS 50 ML 50 ML IV SCH (18:00)
[2019-10-27] MEDS ORDERED: AZITHROMYCIN 500MG/NS 250 ML 250 ML IV SCH (18:30)
--- NOTE | 2019-10-27 19:28 | NUR ---
WALKING ROUNDS PERFORMED, RECEIVED PT LAYING FOWLERS IN BED, AAOX3, RR EVEN AND NON-LABORED, ON ROOM AIR. NO S/SX OF DISTRESS NOTED. LEFT PT LAYING FOWLERS IN BED, BED IN LOW LOCKED POSITION, SIDE RAILS UPX2, CALL LIGHT AND PHONE WITHIN REACH.
[2019-10-27] MEDS ORDERED: DEXAMETHASONE SOD PHOS INJ 4 MG/ML VIAL IV SCH (20:30)
[2019-10-27] MEDS: BENZONATATE 100 MG CAP PO PRN (20:51)
[2019-10-27] MEDS ORDERED: MONTELUKAST SODIUM 10 MG TAB PO SCH (21:00)
[2019-10-28] VITALS (7 sets, daily range): BP systolic 109–127; BP diastolic 60–82
[2019-10-28] MEDS: BUDESONIDE/FORMOTEROL 160/4.5MCG INHALER INH SCH (06:26)
[2019-10-28] MEDS: ASCORBIC ACID 500 MG TAB PO SCH (08:40)
[2019-10-28] MEDS: ENOXAPARIN 30 MG/0.3 ML SYR SC SCH (08:40)
[2019-10-28] MEDS ORDERED: LORATADINE 10 MG TAB PO SCH (09:00)
[2019-10-28] MEDS ORDERED: ZINC SULFATE 220 MG CAP PO SCH (09:00)
[2019-10-28] MEDS ORDERED: KETOROLAC TROMETHAMINE 30 MG/ML VIAL IV ONE (11:15)
[2019-10-28] MEDS: BENZONATATE 100 MG CAP PO PRN (11:50)
[2019-10-28] MEDS ORDERED: ZITHROMAX500 MG PO (11:57)
[2019-10-28] MEDS ORDERED: PREDNISONE20 MG PO (11:57)
[2019-10-28] MEDS ORDERED: ZINC SULFATE220 M1 PO (11:57)
[2019-10-28] MEDS ORDERED: TESSALON PERLE100 MG PO (11:57)
[2019-10-28] MEDS ORDERED: ASCORBIC ACID500 MG PO (11:57)
[2019-10-28] MEDS ORDERED: KEFLEX500 MG PO (11:57)
--- NOTE | 2019-10-28 12:01 | NUR ---
D/C summary Principal Dx: Acute resp failure- O2 support VIral PNA - supportive COVID19 positive- zinc/vitC/supportive care with O2; IV steroids Multifocal PNA- azithromycin/ceftraixone Sepsis- due to COVID19 infections; antibiotics; fluids as needed. Secondary Dx Obesity- screen with hab1c/lipids BMI 39.7- as above Hypoxia- O2 support Prop: lovenox dispo: supportive care; d/c home stable f/u 2 days and Lesa 1 week d/c>35mins Jose Antonio El MD, PHD.
--- NOTE | 2019-10-28 12:02 | Progress Note ---
DATE: Pulmonary Critical Care Progress Note SUBJECTIVE: Infectious Disease has started remdesivir. The patient complains of headache this morning. She has had similar headaches in the past and have gone away with Motrin or Excedrin. PHYSICAL EXAMINATION: VITAL SIGNS: The patient is afebrile. The blood pressure is 112/60, saturation is 99%. The patient is afebrile. HEENT: No facial swelling or erythema. The oropharynx is normal. LYMPHATIC: No submandibular, cervical, or supraclavicular adenopathy. CARDIAC: Regular rate and rhythm with normal S1, S2. LUNGS: Auscultation of lungs reveals rhonchorous breath sounds bilaterally. There is no wheezing. ABDOMEN: Soft, nontender. There is no rebound or guarding. EXTREMITIES: No leg edema or calf tenderness. LABORATORY DATA: BUN to creatinine ratio is normal. Carbon dioxide is 20. Other electrolytes are within normal limits. IMPRESSION: 1. Viral pneumonia and coronavirus disease-19 infection. 2. Headache. 3. Obesity. PLAN: 1. Complete remdesivir and antibiotics. 2. Toradol for headache. 3. Dexamethasone. Jarad Francois MD [facility]/FANIL /[id number]
[2019-10-28] MEDS ORDERED: REMDESIVIR 100MG/NS 100ML 100 MG in SODIUM CHLORIDE 0.9% 100 ML 100 ML IV SCH (18:00)
== END 2019-10-28 14:45 | disposition home or self-care (01) | DRG 177 ==
LOC: ER 18:21 → ERHOLD 20:54 → MED/SURG3 21:37
PROVIDERS: ADMIT Internal Medicine; ATTEND Internal Medicine
PROC: 8E0ZXY6 Isolation (ICD-10-PCS; principal; 2019-10-26)
DX: U07.1 COVID-19 (principal); J12.89 Other viral pneumonia; R51 Headache; E66.9 Obesity, unspecified; Z68.39 Body mass index [BMI] 39.0-39.9, adult; F32.9 Major depressive disorder, single episode, unspecified; R09.02 Hypoxemia
CPT/HCPCS: 36415; 71045; 80053; 80061; 80076; 82550; 82553; 83036; 83605; 84443; 84484; 85025; 85379; 87040; 87390; 93005; 99284; G0433; G0435; J0456; J0696; J1100; J1650; J1885; J2405; J7030; U0002